=== PATIENT | female | born 1955 | race Caucasian/White ===

== ENCOUNTER 2016-05-10 11:08 | Emergency (ER) | payer OTHER ==
--- NOTE | 2016-05-10 12:41 | ED CLINICAL REPORT ---
Clinical Report - Physicians/Mid Levels [facility] [address] [place] [address] 05/10/2016 11:10 Patient: GAURAV MENDOZA Time Seen: 11:15. Arrived- By private vehicle. Historian- patient and family. HISTORY OF PRESENT ILLNESS Location of injuries- mouth. Chief Complaint: INJURY TO FACE. The injury occurred 2 days ago. Occurred at home. Fell. The patient complains of moderate pain. The patient sustained a moderate blow to the head. (mouth). No neck pain, loss of consciousness or seizure. Not dazed. (Pt states she bit through her lip, and was concerned because it seemed more swollen.). REVIEW OF SYSTEMS No numbness, dizziness, loss of vision, hearing loss or chest pain. No difficulty breathing, weakness, headache, nausea or abdominal pain. No fever, vomiting or urinary problems. She sustained skin laceration but has no pain on weight bearing. All systems otherwise negative, except as recorded above. PAST HISTORY Problems: Fibromyalgia. Seizure. Anxiety Reaction. Depression. Hypothyroidism. Bipolar Disorder. Tetanus Status. Multiple Sclerosis. Immunizations. LNMP - Last Normal Menstrual Period. Additional Surgeries: Breast. . Elbow. Gastric bypass. Hysterectomy. Knee Prosthesis. Rotator Cuff Surgery. Shoulder Surgery. Tonsillectomy. Tummy tuck. Medications: Ranitidine HCl Oral 150 mg, 2x a day. Aller-fex 180 mg, daily. ALPRAZolam Oral (Tablet 1 mg), 2-4 per day as needed. Biotene Dry Mouth Mouth/Throat, nightly. Biotin 5000 Oral, bid (2 tabs). BuPROPion HCl Oral 300 mg, daily. Estradiol Oral (Tablet 1 mg), daily. Furosemide Oral 40 mg, daily. Gilenya Oral 5 mg, daily. Melatonin Oral (Tablet 5 mg) 2 tablets, nightly. [place] 3 Oral 300 mg, daily. OxyCODONE HCl Oral 20 mg, every 1-2 hours. Prochlorperazine Maleate Oral (Tablet 10 mg), as needed. Synthroid Oral 75 mcg, daily. Treximet Oral (Tablet 85-500 mg) 500 mg (onset of migraines). Tylenol PM Extra Strength Oral 500 mg, 2 tabs nightly. Vitamin D Oral 5000 units, daily. Zolpidem Tartrate Oral 10 mg, as needed. Allergies: Adhesive Tape. Benadryl.(anxiety) ClonazePAM. (irritability) Vicodin.(nausea, rash). SOCIAL HISTORY Never smoker. Alcohol use. No drug use. ADDITIONAL NOTES The nursing notes have been reviewed. PHYSICAL EXAM Vital Signs: 05/10/2016 11:17 BP: 152/78. HR: 98. RR: 20. O2 saturation: 98%. Temp: 98.8 F. Pain level now: 12/29. Have been reviewed. Appearance: Alert. Oriented X3. No acute distress. Head: Chin: mild tenderness and medium sized ecchymosis of the right and left side of the chin. No swelling. Eyes: Pupils equal, round and reactive to light. EOM intact. ENT: No dental injury. Lower lip: mild tenderness and swelling and subcutaneous through and through laceration of the middle aspect of the lower lip (no dental injury; granulation tissue present in wound. No drainage or s/o infection or abscess.). No erythema, abrasion or foreign body. No avulsion of the frenulum. Neck: Painless ROM. Non-tender. CVS: Heart sounds normal. Pulses normal. (PT has mild bruising over her L breast.). Respiratory: Breath sounds normal. Chest nontender. Abdomen: No visible injury. Soft and nontender. Back: No tenderness. ROM normal. Skin: Skin intact. Skin warm and dry. Normal skin turgor. Extremities: Normal inspection. Pelvis stable. Extremities atraumatic. No lower extremity edema. Neuro: Oriented X 3. No motor deficit. No sensory deficit. LABS, X-RAYS, AND EKG Pulse Oximetry: 05/10/2016 11:17 O2 saturation: 98%. (FIO2 - room air). Interpretation: normal. PROGRESS AND PROCEDURES Course of Care: D/w pt: she is outside the window for laceration repair. No sign of infection or facial/mandibular fx. Patient and spouse counseled in person regarding the patient's stable condition and diagnosis. Concerns were addressed. Old medical records reviewed. Disposition: Discharged. Condition: stable. CLINICAL IMPRESSION Single superficial laceration to the lower lip.No foreign body present. Single contusion to the chin. INSTRUCTIONS Warnings: GENERAL WARNINGS: Return or contact your physician immediately if your condition worsens or changes unexpectedly, if not improving as expected, or if other problems arise. Your Current Medications: CONTINUE TAKING THE FOLLOWING MEDICATIONS: Aller-fex* : 180 mg daily. ALPRAZolam Oral : Tablet 1 mg, 2-4 per day, prn. Biotene Dry Mouth Mouth/Throat : nightly. Biotin 5000 Oral : bid, 2 tabs. BuPROPion HCl Oral : 300 mg daily. Estradiol Oral : Tablet 1 mg, daily. Furosemide Oral : 40 mg daily. Gilenya Oral : 5 mg daily. Melatonin Oral : Tablet 5 mg, 2 tablets nightly. [place] 3 Oral : 300 mg daily. OxyCODONE HCl Oral : 20 mg every 1-2 hours. Prochlorperazine Maleate Oral : Tablet 10 mg, prn. Ranitidine HCl Oral : 150 mg 2x a day. Synthroid Oral : 75 mcg daily. Treximet Oral : Tablet 85-500 mg, 500 mg, onset of migraines. Tylenol PM Extra Strength Oral : 500 mg 2 tabs nightly. Vitamin D Oral : 5000 units daily. Zolpidem Tartrate Oral : 10 mg, prn. Prescription Medications: Percocet 5 mg/325 mg: take 1-2 tablets orally every 6 hours as needed for pain. Dispense twelve (12). No refill. Substitution is permissible. Follow-up: Follow up with your doctor as needed. Understanding of the discharge instructions verbalized by patient and family. (Electronically signed by Bree Boyd MD 05/12/2016 12:27)
--- NOTE | 2016-05-10 12:41 | ED NURSING NOTES ---
Clinical Report - Nurses [facility] [address] [place] [address] 05/10/2016 11:10 Patient: GAURAV MENDOZA TRIAGE Acuity: LEVEL 3. Chief Complaint: INJURY TO MOUTH and CHIN. Alert. No acute distress. SEPSIS SCREEN: Sepsis Screen. Negative (no infection suspected/documented). ADRIEN COMA SCORE: [place] Coma Scale: 15- eyes open spontaneously (4); best verbal response- oriented x 4 (5); best motor response- obeys commands (6). --11:26 Ramya Gutierrez R.N. 11:17 05/10/16. BP: 152/78. HR: 98. RR: 20. O2 saturation: 98% on room air. Temp: 98.8 F (oral). Pain level now: 12/29. --11:26 Ramya Gutierrez R.N. Weight: 92.5 kg stated. Height/Length: 64 inches Per Patient. BMI: 35. --11:21 Ramya Gutierrez R.N. Medications Aller-fex 180 mg, daily. ALPRAZolam Oral (Tablet 1 mg), 2-4 per day as needed. Biotene Dry Mouth Mouth/Throat, nightly. Biotin 5000 Oral, bid (2 tabs). BuPROPion HCl Oral 300 mg, daily. Estradiol Oral (Tablet 1 mg), daily. Furosemide Oral 40 mg, daily. Gilenya Oral 5 mg, daily. Melatonin Oral (Tablet 5 mg) 2 tablets, nightly. [place] 3 Oral 300 mg, daily. OxyCODONE HCl Oral 20 mg, every 1-2 hours. Prochlorperazine Maleate Oral (Tablet 10 mg), as needed. Synthroid Oral 75 mcg, daily. Treximet Oral (Tablet 85-500 mg) 500 mg (onset of migraines). Tylenol PM Extra Strength Oral 500 mg, 2 tabs nightly. Vitamin D Oral 5000 units, daily. Zolpidem Tartrate Oral 10 mg, as needed. --11:20 Ramya Gutierrez R.N. Ranitidine HCl Oral 150 mg, 2x a day. --11: Ramya Gutierrez R.N. Medication/allergy information source: the patient. --: Ramya Gutierrez R.N. Allergies Adhesive Tape. Benadryl.(anxiety) ClonazePAM. (irritability) Vicodin.(nausea, rash) --11:19 Ramya Gutierrez R.N. History Arrived by private vehicle. Historian: patient. Accompanied by spouse. Primary physician (Summer). This occurred (2 days ago). Occurred at home. Mechanism of injury: fell while walking and landed on a carpeted surface; tripped. She has had a headache. No loss of consciousness. No neck pain. Treatment WHEEL CLEANER: (cold compress). PAST MEDICAL HX: The patient is post-menopausal. SOCIAL HX: Never smoker. Regular alcohol use. No drug use. NUTRITIONAL RISK ASSESSMENT: The nutritional risk assessment revealed no deficiencies. FUNCTIONAL ASSESSMENT: Functional assessment: no impairments noted. LEARNING NEEDS ASSESSMENT: The learning needs assessment revealed no barriers. FALL RISK ASSESSMENT: Fall risk assessment completed. Risk factors identified include patient history of fall and impairment of mobility. Fall interventions initiated. Patient placed on stretcher. Side rails up x2. Brakes on Bed in low position. Call light in reach of patient. SKIN INTEGRITY ASSESSMENT: Skin integrity risk assessment completed. No skin integrity risk identified. --: Ramya Gutierrez R.N. PROBLEMS: Fibromyalgia. Skin Avulsion. Sprain. Concussion. Seizure. Contusion. Abrasion(s). Laceration. Fall. Head Injury. Cervical Strain. Anxiety Reaction. Depression. Hypothyroidism. Bipolar Disorder. Tetanus Status. Acute Pain. Headache. Multiple Sclerosis. Weakness. --11: Ramya Gutierrez R.N. UTI - Urinary Tract Infection [RuleOut]. --11: Ramya Gutierrez R.N. ADDITIONAL SURGERIES: Breast. . Elbow. Gastric bypass. Hysterectomy. Knee Prosthesis. Rotator Cuff Surgery. Shoulder Surgery. Tonsillectomy. Tummy tuck. --11: Ramya Gutierrez R.N. The following entry was struck by Bree Boyd MD, 12:35 Reason - duplicate <<STRICKEN ENTRY-- Knee Surgery. --10:50 Bree Boyd MD --END STRIKE>>. Assessment GENERAL / NEURO / PSYCH: Alert. Oriented X 4. Appears in no acute distress. Patient appears calm and cooperative. RESPIRATORY: Respirations not labored. CVS: Capillary refill less than 2 seconds. GI / : Abdomen soft and nontender. SKIN: Mucous membranes are pink. Skin is warm and dry. --11: Ramya Gutierrez R.N. Interventions ID band on patient. To treatment room. --11:26 Ramya Gutierrez R.N. PHYSICAL ASSESSMENT To room via wheelchair. GENERAL / NEURO / PSYCH: Alert. Oriented X 4. Appears in no acute distress. HEENT: Chin: tenderness and erythema. Head non-tender. Pupils equal, round and reactive to light. Voice within normal limits. Perioral area: tenderness and erythema of the lower lip and area below the lower lip. Mucous membranes are pink. RESPIRATORY: Respirations not labored. BACK: No neck or back tenderness. SKIN: Skin is warm and dry. --11:27 Ramya Gutierrez R.N. NURSING PROGRESS NOTES :05/10/16. Patient gowned. Two patient identifiers checked. Call light placed in reach. Side rails up x 1. Bed placed in lowest position. Brakes of bed on. Patient ready for evaluation- chart flagged and ED physician notified. --: Ramya Gutierrez R.N. DISPOSITION / DISCHARGE Departure time: 12:50 May 10 2016. Condition at departure: improved and stable. No learning barriers present. Discharge instructions provided and reviewed with the patient. Reviewed medication(s) side effects, precautions and dosing information. Prescription(s) given to the patient. Patient verbalized understanding. Written instructions provided in [place]. The patient was discharged by the physician. She was discharged home and accompanied by spouse. She left the Emergency Department in a wheelchair and via private vehicle. Spouse driving. --22:16 Ramya Gutierrez R.N. Locked/Released at 05/10/2016 22:16 by Ramya Gutierrez R.N.
--- NOTE | 2016-05-12 12:27 | ED DISCHARGE INSTRUCTIONS ---
Patient: GAURAV MENDOZA General Instructions [facility] VisitID: [id number] [address] [place] [address] 60y, F Registration Date/Time: 05/10/2016 Single superficial laceration to the lower lip.No foreign body present. Single contusion to the chin. INSTRUCTIONS Warnings: GENERAL WARNINGS: Return or contact your physician immediately if your condition worsens or changes unexpectedly, if not improving as expected, or if other problems arise. Your Current Medications: CONTINUE TAKING THE FOLLOWING MEDICATIONS: Aller-fex* : 180 mg daily. ALPRAZolam Oral : Tablet 1 mg, 2-4 per day, prn. Biotene Dry Mouth Mouth/Throat : nightly. Biotin 5000 Oral : bid, 2 tabs. BuPROPion HCl Oral : 300 mg daily. Estradiol Oral : Tablet 1 mg, daily. Furosemide Oral : 40 mg daily. Gilenya Oral : 5 mg daily. Melatonin Oral : Tablet 5 mg, 2 tablets nightly. [place] 3 Oral : 300 mg daily. OxyCODONE HCl Oral : 20 mg every 1-2 hours. Prochlorperazine Maleate Oral : Tablet 10 mg, prn. Ranitidine HCl Oral : 150 mg 2x a day. Synthroid Oral : 75 mcg daily. Treximet Oral : Tablet 85-500 mg, 500 mg, onset of migraines. Tylenol PM Extra Strength Oral : 500 mg 2 tabs nightly. Vitamin D Oral : 5000 units daily. Zolpidem Tartrate Oral : 10 mg, prn. Prescription Medications: Percocet 5 mg/325 mg: take 1-2 tablets orally every 6 hours as needed for pain. Dispense twelve (12). No refill. Substitution is permissible. Follow-up: Follow up with your doctor as needed. Understanding of the discharge instructions verbalized by patient and family. ADDITIONAL INFORMATION Laceration, Lip and Mouth Alaceration is a cut through the skin. When the cut is on the outside of the lip, it may be closed with stitches, surgical tape, or sometimes skin glue. Cuts inside the mouth may be sutured or left open, depending on the size. When stitches are used in the mouth, they are usually the kind that dissolve. Home care The following guidelines will help you care for your laceration at home: Eat soft foods to reduce pain when chewing. If the cut isinsideyour mouth, clean the wound by rinsing your mouth after each meal and at bedtime with a mixture of equal parts water and hydrogen peroxide (do not swallow!). Or, you can use a cotton swab to apply hydrogen peroxide directly onto the cut. Mouth wounds can be painful when eating. You may use a local, [id number] numbing solution for pain relief. If this is not available, you may use any numbing solution for teething babies. You may apply this directly to the sores with a cotton-tip swab or with your finger. If the cut is on theoutsideof the lip and sutures were used, you may shower as usual after the first 24 hours, but do not put your head under water until the sutures are removed. After removing the bandage, wash the area with soap and water. Use a wet cotton swab to loosen and remove any blood or crust that forms. After cleaning, keep the wound clean and dry. Talk with your doctor before applying any antibiotic ointment to the wound. You may apply an adhesive bandage or leave the wound open. If surgical tape was used, keep the area clean and dry. If it becomes wet, blot it dry with a towel. Talk with your doctor before applying any antibiotic ointment to the wound. The surgical tape closures will usually fall off after about 5 days. If skin glue was used, do not scratch, rub, or pick at the adhesive film. Do not place tape directly over the film.Do not apply liquid, ointment, or creams to the wound while the film is inplace.Do not clean the wound with peroxide and do not apply ointment. Avoid activities that cause heavy sweating until the film has fallen off. Protect the wound from prolonged exposure to sunlight or tanning lamps. You may shower as usual but do not soak the wound in water (no swimming). If you were given an antibiotic to prevent infection, do not stop taking this medication until you have finished the prescribed course or the doctor tells you to stop. The doctor may prescribe medications for pain. Follow the doctor's instructions for taking these medications.If you have chronic liver or kidney disease or ever had a stomach ulcer or GI bleeding, talk with your doctor before using these medicines. Follow-up care Follow up with your health care provider. Cuts in and around the mouth heal in about five days. However, even with proper treatment, a wound infection sometimes occurs. Therefore, check the wound daily for the warning signs listed below. Stitches should not be left in the face for more thanfivedays; otherwise, permanent stitch martinez may form. Unless told otherwise, you may remove surgical tape closures yourself afterfive days, if they have not already fallen off. Ifskin glue was used, the film will fall off by itself in 510 days. When to seek medical care Get prompt medical attention if any of these occur: Increasing pain in the wound Fever of 100.4F (38C) or higher, or as directed by your health care provider Redness, swelling, or pus coming from the wound If sutures come apart or fall out or if surgical tape falls off before three days If the wound edges reopen Bleeding not controlled by direct pressure You have been given the following additional information: Laceration, Lip/Mouth (Electronically signed by Bree Boyd MD 05/12/2016 12:27)
--- NOTE | 2016-05-12 12:28 | ED MAR SUMMARY ---
..... Medication Administration Record [facility] [address], [place] [id number] Patient: GAURAV MENDOZA Visit ID: [id number] 60y, F Weight: 92.5 kg Height/Length: 64 in BMI: 35 ALLERGIES: Adhesive Tape, Benadryl, ClonazePAM, Vicodin
--- NOTE | 2016-05-12 12:28 | ED MED RECONCILIATION SUMMARY ---
Patient: GAURAV MENDOZA Medication Reconciliation Report [facility] VisitID: [id number] [address] [place] [address] 60y, F Registration Date/Time: 05/10/2016 Weight: 92.5 kg Height/Length: 64 in. BMI: 35.0 ALLERGIES: Adhesive Tape, Benadryl, ClonazePAM, Vicodin The patient's Home Medications are listed below: CONTINUE TAKING THE FOLLOWING MEDICATIONS: Aller-fex 180 mg, daily ALPRAZolam Oral (1 mg), 2-4 per day Biotene Dry Mouth Mouth/Throat, nightly Biotin 5000 Oral, bid, 2 tabs BuPROPion HCl Oral 300 mg, daily Estradiol Oral (1 mg), daily Furosemide Oral 40 mg, daily Gilenya Oral 5 mg, daily Melatonin Oral (5 mg) 2 tablets, nightly [place] 3 Oral 300 mg, daily OxyCODONE HCl Oral 20 mg, every 1-2 hours Prochlorperazine Maleate Oral (10 mg) Ranitidine HCl Oral 150 mg, 2x a day Synthroid Oral 75 mcg, daily Treximet Oral (85-500 mg) 500 mg, onset of migraines Tylenol PM Extra Strength Oral 500 mg, 2 tabs nightly Vitamin D Oral 5000 units, daily Zolpidem Tartrate Oral 10 mg The source(s) of the original Home Medication information: patient The following Medications were given to the patient in the Emergency Department: None. The following Medications were prescribed to the patient: Percocet 5 mg/325 mg: take 1-2 tablets orally every 6 hours as needed for pain. Dispense twelve (12). No refill. Substitution is permissible. -- Bree Boyd MD
--- NOTE | 2016-05-12 12:28 | ED MAR SUMMARY ---
..... Medication Administration Record [facility] [address], [place] [id number] Patient: GAURAV MENDOZA Visit ID: [id number] 60y, F Weight: 92.5 kg Height/Length: 64 in BMI: 35 ALLERGIES: Adhesive Tape, Benadryl, ClonazePAM, Vicodin
--- NOTE | 2016-05-12 12:28 | ED MED RECONCILIATION SUMMARY ---
Patient: GAURAV MENDOZA Medication Reconciliation Report [facility] VisitID: [id number] [address] [place] [address] 60y, F Registration Date/Time: 05/10/2016 Weight: 92.5 kg Height/Length: 64 in. BMI: 35.0 ALLERGIES: Adhesive Tape, Benadryl, ClonazePAM, Vicodin The patient's Home Medications are listed below: CONTINUE TAKING THE FOLLOWING MEDICATIONS: Aller-fex 180 mg, daily ALPRAZolam Oral (1 mg), 2-4 per day Biotene Dry Mouth Mouth/Throat, nightly Biotin 5000 Oral, bid, 2 tabs BuPROPion HCl Oral 300 mg, daily Estradiol Oral (1 mg), daily Furosemide Oral 40 mg, daily Gilenya Oral 5 mg, daily Melatonin Oral (5 mg) 2 tablets, nightly [place] 3 Oral 300 mg, daily OxyCODONE HCl Oral 20 mg, every 1-2 hours Prochlorperazine Maleate Oral (10 mg) Ranitidine HCl Oral 150 mg, 2x a day Synthroid Oral 75 mcg, daily Treximet Oral (85-500 mg) 500 mg, onset of migraines Tylenol PM Extra Strength Oral 500 mg, 2 tabs nightly Vitamin D Oral 5000 units, daily Zolpidem Tartrate Oral 10 mg The source(s) of the original Home Medication information: patient The following Medications were given to the patient in the Emergency Department: None. The following Medications were prescribed to the patient: Percocet 5 mg/325 mg: take 1-2 tablets orally every 6 hours as needed for pain. Dispense twelve (12). No refill. Substitution is permissible. -- Bree Boyd MD
== END 2016-05-10 12:50 | disposition home or self-care (01) ==
LOC: ED SRH 11:08
DX: S01.511A Laceration without foreign body of lip, initial encounter (principal); S00.83XA Contusion of other part of head, initial encounter; W01.0XXA Fall on same level from slipping, tripping and stumbling without subsequent striking against object, initial encounter; Y93.9 Activity, unspecified; Y92.009 Unspecified place in unspecified non-institutional (private) residence as the place of occurrence of the external cause; Y99.9 Unspecified external cause status; Z79.899 Other long term (current) drug therapy; Z88.8 Allergy status to other drugs, medicaments and biological substances; Z88.5 Allergy status to narcotic agent